=== PATIENT | male | born 1990 | race Caucasian/White ===

== ENCOUNTER 2019-06-11 19:11 | Emergency (ER) | payer OTHER ==
[~2019-06-11] VITALS: Ht 180.3 cm; Wt 114.3 kg
[2019-06-11 21:22] VITALS: BP 137/83
== END 2019-06-11 21:10 | disposition home or self-care (01) ==
LOC: ER 19:11
DX: S46.911A Strain of unspecified muscle, fascia and tendon at shoulder and upper arm level, right arm, initial encounter (principal); M75.51 Bursitis of right shoulder; F17.210 Nicotine dependence, cigarettes, uncomplicated; X50.0XXA Overexertion from strenuous movement or load, initial encounter; Y93.89 Activity, other specified; Y92.89 Other specified places as the place of occurrence of the external cause; Y99.8 Other external cause status